=== PATIENT | female | born 1970 | race Caucasian/White ===

== ENCOUNTER 2022-08-19 03:35 | Emergency (ER) | payer OTHER ==
[~2022-08-19] VITALS: Ht 165.1 cm; Wt 86.2 kg
[2022-08-19] MEDS ORDERED: OLANZapine 10 MG VIAL IM ONE ×2 (03:36→03:45)
[2022-08-19] MEDS ORDERED: LORazepam 2 MG/ML VIAL ONE (03:37)
--- NOTE | 2022-08-19 03:39 | NUR ---
[place] [facility] AT BEDSIDE
--- NOTE | 2022-08-19 03:39 | NUR ---
PT CHRISTINE BLS. TAKEN TO BED 5
--- NOTE | 2022-08-19 03:39 | NUR ---
Dr. Eldridge examining patient.
--- NOTE | 2022-08-19 03:39 | NUR ---
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
[2022-08-19 03:41] VITALS: BP 152/104
[2022-08-19] MEDS ORDERED: LORazepam 2 MG/ML VIAL IM ONE ×2 (03:45→04:55)
--- NOTE | 2022-08-19 03:45 | NUR ---
52 Y/O F appearswith pysch issues. verbal aggression toward staff, racial slurs. A&Ox2, skin intact, pain level unobtainable. currents meds unobtainable. pt verbally threatening staff to kill them and makes fingers into a shape of a gun. PMH-unobtainable NKA-unobtainable
--- NOTE | 2022-08-19 03:51 | NUR ---
39 yo f biba with [place] [facility] as well for 5150 for gravely disabled. per ems [place] refusing to answer questions. +schizophasia +flight of thoughts +grandiosity +combative. received verbal order for 10mg im olazapine for psychosis and ativan 1mg im for agitation, orders carried out. refuses to answer questions
--- NOTE | 2022-08-19 03:57 | NUR ---
PT PLACED ON A 5150 HOLD BY [employer]
--- NOTE | 2022-08-19 04:00 | NUR ---
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
--- NOTE | 2022-08-19 04:30 | NUR ---
pt continuing to yell racial slurs at staff, pointing her hands in a gun formation yelling that everyone is and she is going to kill everyone.
[2022-08-19] MEDS ORDERED: LORazepam 1 MG TAB PO ONE (04:40)
[2022-08-19] MEDS ORDERED: HALOPERIDOL IM 5 MG/ML VIAL IM ONE (04:55)
--- NOTE | 2022-08-19 05:11 | NUR ---
pt continues to get out of bed, states shes going to leave. pt is shouting and yelling racial slurs to staff. caren zaldivar aware.
--- NOTE | 2022-08-19 05:20 | NUR ---
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
--- NOTE | 2022-08-19 05:57 | NUR ---
SWABS AND LABS COLLECTED AND TAKEN TO LAB.
[2022-08-19 06:12] LABS: BASOPHILS # (AUTO) 0.1 K/uL (0.00-0.22); BASOPHILS % (AUTO) 0.6 % (0.0-2.0); EOSINOPHILS # (AUTO) 0.2 K/uL (0-0.4); EOSINOPHILS % (AUTO) 1.9 % (0.0-4.0); HEMATOCRIT 37.6 % (36-48); HEMOGLOBIN 12.3 g/dL (12.0-16.0); LYMPHOCYTES # (AUTO) 2.3 K/uL (2.5-16.5); LYMPHOCYTES % (AUTO) 26.9 % (20.5-51.1); MEAN CORPUSCULAR HEMOGLOBIN 26 pg (27-31); MEAN CORPUSCULAR HGB CONC 33 g/dL (33-37); MEAN CORPUSCULAR VOLUME 80.1 fL (80-94); MONOCYTES # (AUTO) 0.7 K/uL (0.8-1.0); MONOCYTES % (AUTO) 7.5 % (1.7-9.3); NEUTROPHILS # (AUTO) 5.5 K/uL (1.8-7.7); NEUTROPHILS % (AUTO) 63.1 % (42.2-75.2); PLATELET COUNT (AUTO) 505 K/uL (140-450); RED BLOOD CELL COUNT(AUTO) 4.69 MIL/uL (4.20-5.40); RED CELL DISTRIBUTION WIDTH 16.7 % (11.6-13.7); WHITE BLOOD COUNT (AUTO) 8.7 K/uL (4.8-10.8)
--- NOTE | 2022-08-19 06:16 | NUR ---
PT STRAIGHT CATHED USING STERILE TECHNIQUE WITH NO URINE OUTPUT, CHRIS MANCUSO MADE AWARE, STATES TO GIVE PT ORAL FLUIDS. PT GIVEN JUICE AND WATER.
[2022-08-19 06:29] LABS: UREA NITROGEN, BLOOD 12 mg/dL (7-18)
[2022-08-19 06:44] LABS: ALBUMIN 4.1 g/dL (3.4-5.0); ANION GAP 15.5 (8-16); CARBON DIOXIDE 26.1 mmol/L (21-32); CHLORIDE 100 mmol/L (98-107); CREATININE 0.7 mg/dL (0.6-1.3); GFR ARICAN-AMERICAN 113 mL/min (>90); GLUCOSE 139 mg/dL (74-106); POTASSIUM 3.6 mmol/L (3.5-5.1); SALICYLATE < 2.8 mg/dL (2.8-20.0); SODIUM SERUM 138 mmol/L (136-145)
--- NOTE | 2022-08-19 06:49 | NUR ---
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
[2022-08-19 07:00] LABS: ASPARTATE AMINOTRANSFERASE 18 U/L (15-37); TOTAL BILIRUBIN 0.3 mg/dL (0.0-1.0)
[2022-08-19 07:02] LABS: ACETAMINOPHEN < 0.5 ug/ml (10-30)
--- NOTE | 2022-08-19 07:13 | NUR ---
transfer of care to [facility].
--- NOTE | 2022-08-19 07:20 | NUR ---
Report recieved report from NAYAN Flores for transfer of care.
--- NOTE | 2022-08-19 09:23 | NUR ---
Patientwas offered breakfast tray. Patient is sitting up eating breakfast.
--- NOTE | 2022-08-19 10:11 | NUR ---
Patient ambulated to restroom with steady gait. Urine sample obtained.
[2022-08-19 10:24] LABS: BARBITURATE, URINE NEGATIVE ng/ml (NEG <=200); BENZODIAZEPINE, URINE POSITIVE ng/mL (NEG <=200); CANNABINOID, URINE NEGATIVE ng/mL (NEG <=50); COCAINE, URINE POSITIVE ng/mL (NEG <=300); OPIATE, URINE NEGATIVE ng/mL (NEG <=2000); PHENCYCLIDINE SCREEN,URINE NEGATIVE ng/mL (NEG <=25)
--- NOTE | 2022-08-19 11:06 | NUR ---
PT SPEAKING WITH MD MOSS ON TELEPSYCH AT THIS TIME
--- NOTE | 2022-08-19 11:06 | NUR ---
Dr. Potter, psychiatrist, evaluating patient at bedside.
--- NOTE | 2022-08-19 11:15 | NUR ---
Per denise Cruz to discharge
[2022-08-19 11:50] VITALS: BP 123/83
--- NOTE | 2022-08-19 11:50 | NUR ---
Patient discharged with v/s stable. Written and verbal after care instructions given. Patient verbalized understanding. Ambulatory with steady gait. All questions addressed prior to discharge. Advised to follow up with PMD.
--- NOTE | 2022-08-19 12:06 | NUR ---
The patient's care was reviewed and supervised by [place] 05 SHANI, RN.
== END 2022-08-19 11:50 | disposition home or self-care (01) ==
LOC: MED 03:35
DX: R41.82 Altered mental status, unspecified (principal); Z20.822 Contact with and (suspected) exposure to COVID-19; T50.995A Adverse effect of other drugs, medicaments and biological substances, initial encounter; F29 Unspecified psychosis not due to a substance or known physiological condition; R45.1 Restlessness and agitation; Y92.89 Other specified places as the place of occurrence of the external cause
CPT/HCPCS: 36415; 80053; 80305; 81025; 85025; 87426; 87635; 96372; 99285; C9803; G0480; G0482; J1630; J2060; J3490